=== PATIENT | female | born 1970 | race Caucasian/White ===

== ENCOUNTER → 2019-07-26 15:26 | Outpatient (BNVA) | payer SELFPAY | PROVIDERS: Family Provider Family Medicine; Visit Provider Family Medicine | DX: Z01.89 Encounter for other specified special examinations (principal) ==

== ENCOUNTER 2019-12-25 12:42 | Emergency (ER) | payer SELFPAY ==
[2019-12-25 12:49] VITALS: BP 150/97; PULSE 90; RESP 14; TEMP 36.7; O2SAT 98; BMI 25.6
--- NOTE | 2019-12-25 13:51 | W.ED.GENADLT ---
HPI - General Adult General: Chief complaint: General Medical Stated complaint: back pain Time Seen by Provider: 12/25/19 13:32 History of Present Illness: HPI narrative: Patient is a 49-year-old female comes to the ED with right flank pain. Patient has a past medical history of prior kidney stones, hypertension and hypothyroidism. Patient says pain started about 4 days ago and has since gotten worse. Today the pain is gotten more severe and started on the right flank about mid lower back region and has since progressed down and moved into the right lower quadrant. She rates the pain about 7 out of 10. Patient says her urine has been a little dark lately. Denies any fever, chills, nausea, vomiting, diarrhea, constipation, blood in the stool, dysuria. Associated symptoms: Deny chest pain, dyspnea, headache(s), nausea, rash, palpitations or vomiting Review of Systems Const: Denies: fever(s), chills or fatigue Eyes: Denies: change in vision or eye discomfort ENMT: Denies: throat pain, odynophagia, nasal discharge or nasal congestion Card: Denies: chest pain, palpitations, edema, swelling of feet/ankles, dyspnea on exertion or orthopnea Resp: Denies: dyspnea, productive cough or non-productive cough GI: Reports: abdominal pain (Pain has now moved into the pelvis and right lower quadrant); Denies: nausea, vomiting, diarrhea, constipation or hematochezia : Reports: flank pain; Denies: dysuria or hematuria Musc: Denies: neck pain, back pain or extremity swelling Skin/Breast: Denies: rash or new lesions Neuro: Denies: headache(s), numbness in extremities or weakness in extremities PFS ED PFSH: Medical History Bipolar affective disorder in remission Essential hypertension Hepatitis C, chronic Hx +ab, neg viral load Hypothyroidism Surgical History S/P bunionectomy Social History Smoking and tobacco status: current every day smoker cigarettes Packs smoked per day: 1 Quit status (tobacco): not considering quitting Second hand smoke exposure: Yes Physical Exam Const: COMMON NORMALS: patient oriented x3, healthy appearing and alert GENERAL APPEARANCE: cooperative; not comfortable (Patient was uncomfortable and in some pain.) HENMT: COMMON NORMALS: normocephalic HEAD & SCALP: normocephalic MOUTH: Normal oral and palatal mucosa present THROAT: posterior oropharynx normal and uvula midline Neck/C-Spine: COMMON NORMALS: supple GENERAL: Yes normal visual inspection Resp: COMMON NORMALS: normal respiratory effort, No retractions, No use of accessory muscles and clear to auscultation bilaterally AUSCULTATION: clear to auscultation bilaterally Cardio: COMMON NORMALS: regular rate, regular rhythm, S1 normal heart sound present, S2 normal heart sound present, No gallops present (Cardio), No clicks present (Cardio), No murmurs present (Cardio) and Peripheral pulses 2+ throughout RATE: regular rate RHYTHM: regular rhythm HEART SOUNDS: S1 normal heart sound present and S2 normal heart sound present PERIPHERAL PULSES: Peripheral pulses 2+ throughout GI: COMMON NORMALS: Normal to inspection, nondistended, normoactive bowel sounds present, Soft to palpation and no masses PALPATION: Yes Soft to palpation and Yes Tenderness to palpation present (GI) Details: RLQ (Mild tenderness in the right lower pelvic region.) : BLADDER/KIDNEY EXAM: Yes CVA tenderness Back/Pelvis: GENERAL BACK: Yes CVA tenderness CVA tenderness: right (mild) Extremity: COMMON NORMALS: normal to inspection and no pedal edema Neuro: COMMON NORMALS: patient oriented x3 and moves all extremities SENSORIUM/ORIENTATION: Yes alert Skin: COMMON NORMALS: no rashes or lesions noted GENERAL SKIN EXAM: no rashes or lesions noted and dry skin Course Consultations: Consultation #1: I contacted the general surgeon on-call Dr. Del Toro and discussed patient's case and CT findings. He recommended that if patient wants to go home and her pain is under control, she should go home and instruct her to return to the ED for reevaluation immediately if symptoms worsen. He also suggested having close follow-up with PCP next couple days as well. Vital Signs: Vital signs: Vital Signs Temperature 98.1 F 12/25/19 12:49 Pulse Rate 72 12/25/19 17:21 Respiratory Rate 18 12/25/19 17:21 Blood Pressure 167/100 12/25/19 17:21 Pulse Oximetry 94 12/25/19 17:21 MDM - General Adult MDM Narrative: Medical decision making narrative: Patient is a 49-year-old female comes to the ED with right flank pain that is also progressed to the right lower quadrant. During physical exam patient had right CVA tenderness and also some right lower quadrant tenderness as well. White blood cell count was 6.9, CMP and lipase were normal. Patient's UA just showed some blood but no other signs of infection. CT of abdomen performed mainly to find potential kidney stone, but report showed no obstructing kidney stones seen, but possible very early signs of appendicitis. I discussed this case with the on-call general surgeon Dr. Del Toro and he was okay with patient going home as long as her pain is controlled and she has close follow-up with PCP for reevaluation in the next couple days. He also told me to stress to her that she can come back to the ED for reevaluation if symptoms worsen. Patient was then diagnosed with abdominal pain and told about possible early appendicitis. I told her that she needs to see her primary care doctor in the next 2 to 3 days for reevaluation and that she can return to the ED immediately if symptoms worsen. Patient was given a prescription for Cipro, Flagyl and Zofran. She was also given a written prescription for hydrocodone to help with pain. She was told to return to ED immediately if she has worsening symptoms including fever, vomiting, increasing pain. Patient says she will follow-up with her PCP in the next couple days as well. Patient understood and agreed with plan. Lab Data: Attestation: I reviewed the patient's lab results. Labs: Lab Results 12/25/19 12/25/19 12/25/19 Range/Units 13:53 14:20 14:20 WBC 6.9 (4.0-10.0) 10^3/ uL RBC 4.44 (4.1-5.3) 10^6/u L Hgb 13.8 (11.5-15.3) g/dL Hct 42.1 (37.0-47.0) % MCV 94.8 (81-99) fL MCH 31.1 (28.0-34.0) pg MCHC 32.8 (30.0-36.0) g/dL RDW 13.7 (12.1-15.1) % Plt Count 242 (130-400) 10^3/c mm MPV 9.8 (7.4-10.4) fL Neut % (Auto) 69.4 % Lymph % (Auto) 23.3 % [place] % (Auto) 5.4 % Eos % (Auto) 0.9 % Baso % (Auto) 0.7 % Neut # (Auto) 4.8 (1.8-7.7) 10^3/u L Lymph # (Auto) 1.6 (0.8-4.8) 10^3/u L [place] # (Auto) 0.4 (0.2-0.9) 10^3/u L Eos # (Auto) 0.1 (0.0-0.8) 10^3/u L Baso # (Auto) 0.1 (0.0-0.1) 10^3/u L Nucleated RBC % (a uto) 0 % Nucleated RBCs # 0.0 /100WBC Sodium 138 (136-145) mmol/L Potassium 3.5 (3.5-5.1) mmol/L Chloride 99 (98-107) mmol/L Carbon Dioxide 28 (22-29) mmol/L Anion Gap 14.5 (5-19) BUN 13 (6-20) mg/dL Creatinine 0.8 (0.5-0.9) mg/dL GFR Calculation 75.9 L (90-130) mL/min Glucose 122 H (65-115) mg/dL Calculated Osmolal ity 283 L (285-295) mOsm/k g Calcium 9.5 (8.5-10.5) mg/dL Total Bilirubin 0.6 (0.15-1.2) mg/dL AST 16 (0-32) U/L ALT 12 (0-33) U/L Alkaline Phosphata se 36 (35-105) IU/L Total Protein 8.0 (6.6-8.7) g/dL Albumin 4.4 (3.5-5.2) g/dL Globulin 3.6 (1.3-4.6) g/dL Lipase 19 (13-60) U/L HCG, Qual (Negative) Urine Color Yellow (Yellow) Urine Appearance Clear (CLEAR) Urine pH 5 (5-7) Ur Specific Gravit y 1.025 (1.005-1.030) Urine Protein Neg (Negative) Urine Glucose (UA) Norm (Normal) Urine Ketones Negative (Negative) Urine Blood 2+ H (Negative) Urine Nitrate Negative (Negative) Urine Bilirubin Neg (NEGATIVE) Urine Urobilinogen 1 H (Negative) mg/dL Ur Leukocyte [place] ase Negative (Negative) Urine RBC 5-10 H (0-2) /hpf Urine WBC 0-4 H (0-5) /hpf Ur Squamous Epith Cells 0-4 H (0-5) Urine Bacteria 1+ H (NONE) Urine Mucus 2+ 06/30/20 Range/Units 14:20 WBC (4.0-10.0) 10^3/ uL RBC (4.1-5.3) 10^6/u L Hgb (11.5-15.3) g/dL Hct (37.0-47.0) % MCV (81-99) fL MCH (28.0-34.0) pg MCHC (30.0-36.0) g/dL RDW (12.1-15.1) % Plt Count (130-400) 10^3/c mm MPV (7.4-10.4) fL Neut % (Auto) % Lymph % (Auto) % [place] % (Auto) % Eos % (Auto) % Baso % (Auto) % Neut # (Auto) (1.8-7.7) 10^3/u L Lymph # (Auto) (0.8-4.8) 10^3/u L [place] # (Auto) (0.2-0.9) 10^3/u L Eos # (Auto) (0.0-0.8) 10^3/u L Baso # (Auto) (0.0-0.1) 10^3/u L Nucleated RBC % (a uto) % Nucleated RBCs # /100WBC Sodium (136-145) mmol/L Potassium (3.5-5.1) mmol/L Chloride (98-107) mmol/L Carbon Dioxide (22-29) mmol/L Anion Gap (5-19) BUN (6-20) mg/dL Creatinine (0.5-0.9) mg/dL GFR Calculation (90-130) mL/min Glucose (65-115) mg/dL Calculated Osmolal ity (285-295) mOsm/k g Calcium (8.5-10.5) mg/dL Total Bilirubin (0.15-1.2) mg/dL AST (0-32) U/L ALT (0-33) U/L Alkaline Phosphata se (35-105) IU/L Total Protein (6.6-8.7) g/dL Albumin (3.5-5.2) g/dL Globulin (1.3-4.6) g/dL Lipase (13-60) U/L HCG, Qual Negative (Negative) Urine Color (Yellow) Urine Appearance (CLEAR) Urine pH (5-7) Ur Specific Gravit y (1.005-1.030) Urine Protein (Negative) Urine Glucose (UA) (Normal) Urine Ketones (Negative) Urine Blood (Negative) Urine Nitrate (Negative) Urine Bilirubin (NEGATIVE) Urine Urobilinogen (Negative) mg/dL Ur Leukocyte [place] ase (Negative) Urine RBC (0-2) /hpf Urine WBC (0-5) /hpf Ur Squamous Epith Cells (0-5) Urine Bacteria (NONE) Urine Mucus Imaging Data^: CT Abd/Pel: Attestation: I personally reviewed and interpreted this imaging study as follows: Radiologist's impression: [place] [id number] CT Scan Report Signed with Gena Patient: Mily Stockton #: [id number] : 1970Acct#:[id number] Age/Sex: 49 / FADM Date: 12/25/19 Loc: ERRoom/Bed: Attending Dr: Ordering Provider/Ordering MD: Mathieu Keyes Date of Service: 12/25/19 Procedure(s): CT kidney stone 62620 Accession Number(s): [id number] Report Number: [id number]/CT kidney stone 02900 THIS REPORT CONTAINS FINDINGS THAT MAY BE CRITICAL TO PATIENT CARE. The findings were verbally communicated via telephone conference with Mathieu Keyes at 4:17 PM CDT on 12/25/2019. The findings were acknowledged and understood. Radiation Dose CTDIVOL = (mGy): DLP = 1264.06 (mGy-cm) Addendum Dictated By: Odalis Madrigal Addendum Signed By: Miriam Madrigal Date/Time:12/25/19 1619 Addendum Cosigned By: PROCEDURE INFORMATION: Exam: CT Abdomen And Pelvis Without Contrast Exam date and time: 12/25/2019 2:29 PM Age: 49 years old Clinical indication: Abdominal pain; Patient HX: Right flank pain x 4 days TECHNIQUE: Imaging protocol: Computed tomography of the abdomen and pelvis without contrast. Radiation optimization: All CT scans at this facility use at least one of these dose optimization techniques: automated exposure control; mA and/or kV adjustment per patient size (includes targeted exams where dose is matched to clinical indication); or iterative reconstruction. COMPARISON: No relevant prior studies available. RADIATION DOSE METRICS: Total DLP (mGy-cm): 1264.06 FINDINGS: Lungs: There is subpleural atelectasis of the dependent portions of the lungs. Mediastinal space: A small hiatal hernia is present. There is mild wall thickening of the distal esophagus that may reflect lack of distention or mild esophagitis. Liver: Unremarkable.No mass. Gallbladder and bile ducts: The gallbladder is partially collapsed. No wall thickening or duct dilatation is identified. Pancreas: Normal. No ductal dilation. Spleen: Normal. No splenomegaly. Adrenals: Normal. No mass. Kidneys and ureters: There is no evidence of hydronephrosis. There is no evidence of renal calcifications. No calculi are identified in the ureters or bladder. Stomach and bowel: There is mild diffuse proximal small bowel wall thickening with fluid in the lumen, compatible with mild enteritis. There is no evidence of intestinal perforation or obstruction. There is abundant colonic stool in the right colon. No wall thickening. No colitis or diverticulitis. Appendix: The transverse measurement of the appendix is 13 mm image 114. The wall is slightly thickened and mildly hyperdense. There is no periappendiceal inflammatory change but the wall of the appendix appears slightly thicker than the adjacent loops of small bowel concerning for very early/mild appendicitis. There does appear to be a small amount of fat density in the wall of the appendix but the transverse measurement is prominent. Intraperitoneal space: Unremarkable. No free air. No significant fluid collection. Vasculature: Unremarkable.No abdominal aortic aneurysm. Lymph nodes: Unremarkable.No enlarged lymph nodes. Bladder: There is nonspecific bladder wall thickening. This may be related to incomplete distention. Reproductive: Unremarkable as visualized. Bones/joints: Unremarkable. No acute fracture. Soft tissues: There is a fat-containing umbilical hernia. CT/CT kidney stone 65607 IMPRESSION: 1. There is mild diffuse proximal small bowel wall thickening with fluid in the lumen, compatible with mild enteritis. 2. Appendix measurement is above normal limits in the wall appears slightly thickened concerning for early appendicitis. There is no significant periappendiceal inflammatory changes. The periappendiceal fat is clean.. 3. No obstructing calculi or hydronephrosis. The gallbladder is partially collapsed but otherwise unremarkable. Radiation Dose CTDIVOL = (mGy): DLP = 1264.06 (mGy-cm) Dictated By:Odalis Madrigal Signed By:Miriam Madrigal Date/Time:12/25/19 160 DD/ 160 Discharge Plan Discharge Patient Disposition: Home, Self-Care Clinical Impression: Abdominal pain Qualifiers: Abdominal location: right lower quadrant Qualified Code(s): R10.31 - Right lower quadrant pain Condition: Stable Prescriptions: New ciprofloxacin HCl 500 mg tablet 500 mg PO BID 10 Days Qty: 20 RF: 0 Flagyl 500 mg tablet 500 mg PO BID 10 Days Qty: 20 RF: 0 Zofran 4 mg tablet 4 mg PO DAILY Qty: 14 RF: 0 No Action lisinopril-hydrochlorothiazide 20-12.5 mg tablet 1 tab PO QDAY 30 Days Qty: 30 RF: 2 metoprolol succinate 25 mg tablet extended release 24 hr 25 mg PO QDAY 30 Days Qty: 30 RF: 2 terbinafine HCl 250 mg tablet 250 mg PO DAILY 30 Days Qty: 30 RF: 2 sulfamethoxazole-trimethoprim [Bactrim DS] 800-160 mg tablet 1 tab PO BID 3 Days Qty: 6 RF: 0 levothyroxine 150 mcg capsule 150 mcg PO DAILY 30 Days Qty: 30 RF: 5 Discharge Orders: Discharge Order (Routine); Ordered 12/25/19 Ordered By: Mathieu Keyes Referrals: Ela Cancino MD [Primary Care Provider] - Discharge Diet: Regular Discharge Activity: Increase activity as tolerated Patient Instructions: Abdominal Pain (ED) Activity Restrictions/Additional Instructions: Go follow-up with your PCP in 2 to 3 days for reevaluation. Take full course of antibiotics as prescribed. Take prescribed [place] as needed for pain. Take Zofran as needed for nausea. Continue taking all home meds. Follow discharge plans as discussed. You can return to the ED if symptoms worsen. Discharge Date/Time: 12/25/19 17:21 Coding Level of Care Code ED [employer] Pricing Coordinator for Jorge Ribera Exam Comprehensive
--- NOTE | 2019-12-25 14:13 | CTR_ITS ---
PROCEDURE INFORMATION: Exam: CT Abdomen And Pelvis Without Contrast Exam date and time: 12/25/2019 2:29 PM Age: 49 years old Clinical indication: Abdominal pain; Patient HX: Right flank pain x 4 days TECHNIQUE: Imaging protocol: Computed tomography of the abdomen and pelvis without contrast. Radiation optimization: All CT scans at this facility use at least one of these dose optimization techniques: automated exposure control; mA and/or kV adjustment per patient size (includes targeted exams where dose is matched to clinical indication); or iterative reconstruction. COMPARISON: No relevant prior studies available. RADIATION DOSE METRICS: Total DLP (mGy-cm): 1264.06 FINDINGS: Lungs: There is subpleural atelectasis of the dependent portions of the lungs. Mediastinal space: A small hiatal hernia is present. There is mild wall thickening of the distal esophagus that may reflect lack of distention or mild esophagitis. Liver: Unremarkable.No mass. Gallbladder and bile ducts: The gallbladder is partially collapsed. No wall thickening or duct dilatation is identified. Pancreas: Normal. No ductal dilation. Spleen: Normal. No splenomegaly. Adrenals: Normal. No mass. Kidneys and ureters: There is no evidence of hydronephrosis. There is no evidence of renal calcifications. No calculi are identified in the ureters or bladder. Stomach and bowel: There is mild diffuse proximal small bowel wall thickening with fluid in the lumen, compatible with mild enteritis. There is no evidence of intestinal perforation or obstruction. There is abundant colonic stool in the right colon. No wall thickening. No colitis or diverticulitis. Appendix: The transverse measurement of the appendix is 13 mm image 114. The wall is slightly thickened and mildly hyperdense. There is no periappendiceal inflammatory change but the wall of the appendix appears slightly thicker than the adjacent loops of small bowel concerning for very early/mild appendicitis. There does appear to be a small amount of fat density in the wall of the appendix but the transverse measurement is prominent. Intraperitoneal space: Unremarkable. No free air. No significant fluid collection. Vasculature: Unremarkable.No abdominal aortic aneurysm. Lymph nodes: Unremarkable.No enlarged lymph nodes. Bladder: There is nonspecific bladder wall thickening. This may be related to incomplete distention. Reproductive: Unremarkable as visualized. Bones/joints: Unremarkable. No acute fracture. Soft tissues: There is a fat-containing umbilical hernia. CT/CT kidney stone 22861 IMPRESSION: 1. There is mild diffuse proximal small bowel wall thickening with fluid in the lumen, compatible with mild enteritis. 2. Appendix measurement is above normal limits in the wall appears slightly thickened concerning for early appendicitis. There is no significant periappendiceal inflammatory changes. The periappendiceal fat is clean.. 3. No obstructing calculi or hydronephrosis. The gallbladder is partially collapsed but otherwise unremarkable. Radiation Dose CTDIVOL = (mGy): DLP = 1264.06 (mGy-cm)
[2019-12-25] MEDS: sodium chloride 0.9% 1,000 ML 999 ML IV (14:25)
[2019-12-25 14:30] VITALS: RESP 18; O2SAT 97
[2019-12-25] MEDS: ondansetron 2 mg/ML SDV 2 mL 4 MG IVP (14:30)
[2019-12-25] MEDS: morphine 4 mg/mL SDV 1 mL IVP (14:30)
[2019-12-25 14:31] LABS: Basophils # 0.1 10^3/uL (0.0-0.1); Basophils % 0.7 %; Eosinophils # 0.1 10^3/uL (0.0-0.8); Eosinophils % 0.9 %; Hematocrit 42.1 % (37.0-47.0); Hemoglobin 13.8 g/dL (11.5-15.3); Lymphocytes # 1.6 10^3/uL (0.8-4.8); Lymphocytes % 23.3 %; Mean Corpuscular HGB Conc 32.8 g/dL (30.0-36.0); Mean Corpuscular Hemoglobin 31.1 pg (28.0-34.0); Mean Corpuscular Volume 94.8 fL (81-99); Mean Platelet Volume 9.8 fL (7.4-10.4); Monocytes # 0.4 10^3/uL (0.2-0.9); Monocytes % 5.4 %; Neutrophils # 4.8 10^3/uL (1.8-7.7); Neutrophils % 69.4 %; Nucleated Red Blood Cells % 0 %; Platelet Count 242 10^3/cmm (130-400); Red Blood Count 4.44 10^6/uL (4.1-5.3); Red Cell Distribution Width 13.7 % (12.1-15.1); White Blood Count 6.9 10^3/uL (4.0-10.0)
[2019-12-25 14:36] LABS: Bilirubin Urine Neg (NEGATIVE); Blood Urine 2+ (Negative); Glucose Urine UA Norm (Normal); Ketones Urine Negative (Negative); Leukocyte Esterase Urine Negative (Negative); Nitrate Urine Negative (Negative); Protein Urine Neg (Negative); Specific Gravity, Urine 1.025 (1.005-1.030); Urine Appearance Clear (CLEAR); Urine Color Yellow (Yellow); Urobilinogen Urine 1 mg/dL (Negative); pH Urine 5 (5-7)
[2019-12-25 14:37] LABS: Add Urine Culture? No; Bacteria Urine 1+; Mucus Urine 2+; Squamous Epithelial Cell Urine 0-4 (0-5); WBC Urine 0-4 /hpf (0-5)
[2019-12-25 14:46] LABS: Alanine Aminotransferase 12 U/L (0-33); Albumin Level 4.4 g/dL (3.5-5.2); Alkaline Phosphatase 36 IU/L (35-105); Anion Gap 14.5 (5-19); Aspartate Amino Transferase 16 U/L (0-32); Blood Urea Nitrogen 13 mg/dL (6-20); Calcium 9.5 mg/dL (8.5-10.5); Carbon Dioxide 28 mmol/L (22-29); Chloride 99 mmol/L (98-107); Globulin 3.6 g/dL (1.3-4.6); Glomerular Filtration Rate 75.9 mL/min (90-130); Glucose 122 mg/dL (65-115); Lipase 19 U/L (13-60); Osmolality Calculated 283 mOsm/kg (285-295); Potassium 3.5 mmol/L (3.5-5.1); Sodium 138 mmol/L (136-145); Total Bilirubin 0.6 mg/dL (0.15-1.2)
[2019-12-25 14:54] LABS: HCG, Serum Qual Negative (Negative)
[2019-12-25 17:21] VITALS: BP 167/100; PULSE 72; RESP 18; O2SAT 94
== END 2019-12-25 17:21 | disposition home or self-care (01) ==
PROVIDERS: Emergency Provider Physician Assistant; PCP Family Medicine
DX: R10.31 Right lower quadrant pain (principal); I10 Essential (primary) hypertension; Z86.19 Personal history of other infectious and parasitic diseases; F17.210 Nicotine dependence, cigarettes, uncomplicated
CPT/HCPCS: 12345; 74176; 80053; 81001; 83690; 84703; 85025; 96361; 96374; 96375; 99283; J2270; J2405; J7030

== ENCOUNTER 2019-12-28 11:31 | Emergency (ER) | payer SELFPAY ==
[2019-12-28 11:39] VITALS: BP 127/82; PULSE 65; RESP 14; TEMP 37; O2SAT 97; BMI 25.6
--- NOTE | 2019-12-28 11:51 | CT_ITS ---
WS: [id number] CT ABDOMEN AND PELVIS WITH CONTRAST HISTORY: Abdominal pain TECHNIQUE: Imaging performed of the abdomen and pelvis with IV contrast. Single phase imaging of the abdomen. Coronal and sagittal reformats are submitted. All CT scans at [facility] use at least one of these dose optimization techniques: automated exposure control; mA and/or kV adjustment per patient size (includes targeted exams where dose is matched to clinical indication); or iterativ e reconstruction. IV CONTRAST: Omnipaque 300; 95 mL IV. Oral contrast: Yes. DLP: 993.76 mGy.cm COMPARISON: 12/25/2019 Lower thorax: Lung bases are clear. Heart is normal size. Small hiatal hernia. Liver/biliary system: Normal size liver with hepatic steatosis along the falciform ligament. Portal v ein is patent. No bile duct dilatation. Gallbladder: Normal. No gallstones or wall thickening. No pericholecystic fluid. Pancreas: Normal. Spleen: Normal. Adrenal glands: Normal. Right kidney: Normal. Left kidney: Normal. Aorta: Normal. Lymphadenopathy: None. Free fluid: None. GI tract: The appendix is identified and contains multiple foci of air. Similar appearance to the cierra or study with no evidence for acute appendicitis. There is diffuse constipation and retained fecal ma terial throughout the colon there is moderate thickening in the descending and sigmoid colonic wall. There is mucosal thickening and there is a small amount of adjacent inflammation surrounding the sigm oid. Caliber of the colon becomes decreased. Mild wall thickening continues to the level of the rectu m. Minimal thickening of the duodenal C-loop. Abdominal wall: Small umbilical hernia. Pelvis: Well-distended urinary bladder. There is a tubular cystic structure in the LEFT adnexa which is probably a parapelvic cyst or dilated fallopian tube. This was also present on the pelvic MRI from 01/03/2012. Small RIGHT ovarian follicle. Bones: Mild curvature lumbar spine. Notified Marzena Zhang at 12/28/2019 2:[address]/CT abdomen pelvis w con* [id number] IMPRESSION: 1. Negative appendix. No evidence for appendicitis. 2. There is mild mucosal thickening and pericolonic inflammation in the descen ding and sigmoid colon to the level of the rectum. Caliber of the colon becomes decreased and there is more proximal constipation. Due to long segment involve ment of the colon favor colitis. 3. Small hiatal hernia. 4. No renal stone or obstruction. 5. Elongated, tubular cystic mass LEFT adnexa. Present since 2011. Probably a parapelvic cyst or hydrosalpinx.
[2019-12-28 12:24] LABS: HCG, Serum Qual Negative (Negative)
[2019-12-28 12:30] LABS: Alanine Aminotransferase 10 U/L (0-33); Albumin Level 4.3 g/dL (3.5-5.2); Alkaline Phosphatase 31 IU/L (35-105); Aspartate Amino Transferase 14 U/L (0-32); Blood Urea Nitrogen 12 mg/dL (6-20); Calcium 9.6 mg/dL (8.5-10.5); Carbon Dioxide 28 mmol/L (22-29); Chloride 99 mmol/L (98-107); Globulin 3.4 g/dL (1.3-4.6); Glomerular Filtration Rate 88.6 mL/min (90-130); Glucose 80 mg/dL (65-115); Lipase 9 U/L (13-60); Osmolality Calculated 279 mOsm/kg (285-295); Sodium 137 mmol/L (136-145); Total Bilirubin 0.4 mg/dL (0.15-1.2); Total Protein 7.7 g/dL (6.6-8.7)
[2019-12-28] MEDS: morphine 4 mg/mL SDV 1 mL IVP (12:38)
[2019-12-28] MEDS: metoclopramide 5 mg/mL SDV 2 mL 10 MG IVP (12:38)
[2019-12-28] MEDS: ondansetron 2 mg/ML SDV 2 mL 4 MG IVP (12:38)
[2019-12-28] MEDS: barium sulfate 450 mL Oral Susp PO (12:40)
[2019-12-28] MEDS: sodium chloride 0.9% 1,000 ML 100 ML IV (12:40)
[2019-12-28 12:41] VITALS: BP 122/73; PULSE 64; RESP 14; O2SAT 96
[2019-12-28 12:54] LABS: Basophils % 0.5 %; Eosinophils # 0.1 10^3/uL (0.0-0.8); Lymphocytes # 1.6 10^3/uL (0.8-4.8); Lymphocytes % 20.5 %; Mean Corpuscular HGB Conc 32.6 g/dL (30.0-36.0); Mean Corpuscular Volume 95.1 fL (81-99); Mean Platelet Volume 10.2 fL (7.4-10.4); Monocytes # 0.6 10^3/uL (0.2-0.9); Monocytes % 7.1 %; Neutrophils # 5.5 10^3/uL (1.8-7.7); Neutrophils % 70.5 %; Nucleated Red Blood Cells % 0 %; Platelet Count 269 10^3/cmm (130-400); Red Blood Count 4.52 10^6/uL (4.1-5.3); Red Cell Distribution Width 13.9 % (12.1-15.1); White Blood Count 7.8 10^3/uL (4.0-10.0)
[2019-12-28 13:01] LABS: Bilirubin Urine Neg (NEGATIVE); Blood Urine Neg (Negative); Glucose Urine UA Norm (Normal); Ketones Urine Negative (Negative); Leukocyte Esterase Urine Negative (Negative); Nitrate Urine Negative (Negative); Protein Urine Neg (Negative); Urine Appearance Clear (CLEAR); Urine Color Yellow (Yellow); Urobilinogen Urine Neg (Negative); pH Urine 5 (5-7)
[2019-12-28 13:12] LABS: Add Urine Culture? No; Bacteria Urine TRACE
--- NOTE | 2019-12-28 13:16 | W.ED.ABDPA2 ---
HPI - Abdominal Pain General: Chief Complaint: Abdominal Pain Stated Complaint: POSS APPENDICITIS Time Seen by Provider: 12/28/19 11:39 Source: patient Mode of arrival: ambulatory Limitations: no limitations History of Present Illness: HPI narrative: Mily is a nice 49-year-old female who comes in complaining of 1 weeks worth of abdominal pain patient was previously seen here for this and had a CT scan that showed equivocal findings. Please see that CT report as well as that ER chart for specifics. Patient is on Cipro and Flagyl and has been so for the past 2 days. She has no fever, no nausea or vomiting, but has had nonbloody diarrhea. She denies any vaginal discharge or bleeding, dysuria or other gynecologic or urologic complaint. Patient is unaware of any exacerbating or alleviating factors the pain is just continued and because of this after seeing her primary care she was referred back here for recheck. Associated Symptoms: Reports nausea and vomiting; Denies chills, coffee ground emesis, constipation, GI cramping, diarrhea, dysuria, fever(s), heartburn, hematochezia, hematuria, hematemesis, melena and syncope Review of Systems Const: Denies: fever(s), chills, body aches, fatigue, malaise or diaphoresis Eyes: Denies: change in vision, blurry vision, blind spots, photophobia, eye discharge or eye redness ENMT: Denies: throat pain, odynophagia, hoarseness, swelling of lips/tongue, oral sores, ear or mastoid pain, ear discharge, change in hearing or nasal discharge Card: Denies: chest pain, palpitations, irregular heart rhythm, edema, lightheadedness, syncope, pre-syncope, dyspnea on exertion or orthopnea Resp: Denies: dyspnea, productive cough, non-productive cough, wheezing, hemoptysis or chest congestion GI: Reports: abdominal pain, nausea and vomiting; Denies: hematemesis, coffee ground emesis, heartburn, diarrhea, constipation, GI cramping, hematochezia or melena : Denies: flank pain, dysuria, urinary frequency, urinary urgency or hematuria Musc: Denies: neck pain, back pain, extremity pain, extremity swelling, joint pain, joint swelling, joint redness, joint warmth or joint stiffness Skin/Breast: Denies: rash, pruritus, erythema, skin tenderness or jaundice Neuro: Denies: headache(s), numbness in extremities, weakness in extremities, sensory changes, lack of coordination, difficulty walking, dizziness, vertigo, confusion, Slurred speech present or seizure-like activity [place]/Lymph: Denies: easy bruising, easy bleeding, petechiae, purpura or enlarged lymph nodes All/Imm: Denies: urticaria, throat swelling, tongue swelling, facial swelling or acute wheezing PFSH ED PFSH: Medical History Bipolar affective disorder in remission Essential hypertension Hepatitis C, chronic Hx +ab, neg viral load Hypothyroidism Surgical History S/P bunionectomy Social History Smoking and tobacco status: current every day smoker cigarettes Packs smoked per day: 1 Quit status (tobacco): not considering quitting Second hand smoke exposure: Yes Physical Exam Const: COMMON NORMALS: no acute distress, patient oriented x3, no limitations, healthy appearing and well nourished GENERAL APPEARANCE: cooperative, well kempt and well developed HENMT: COMMON NORMALS: normocephalic, atraumatic, external ears normal, EAC's normal and Normal external nose present HEAD & SCALP: normal to inspection, normocephalic and atraumatic FACE & SINUS: normal facial exam and face symmetric NOSE: Normal external nose present and Normal nares present EXTERNAL EAR: Yes external ears normal EXTERNAL AUDITORY CANAL: EAC's normal MOUTH: Normal oral and palatal mucosa present, lip normal and tongue normal Eye: COMMON NORMALS: Equal, round and reactive pupils present and conjunctivae normal GENERAL EYE: appearance normal, both eyes and all related structures ALIGNMENT: Yes alignment normal PERIORBITAL: periorbital findings normal EYELID: eyelids normal CONJUNCTIVA: Yes conjunctivae normal SCLERA: sclerae normal PUPIL: Yes Equal, round and reactive pupils present Neck/C-Spine: COMMON NORMALS: full ROM, no lymphadenopathy, supple, no meningeal signs and no JVD GENERAL: Yes normal visual inspection and Yes trachea midline Chest: COMMONS NORMALS: normal inspection of the chest and normal palpation of entire chest wall Resp: COMMON NORMALS: normal respiratory effort, No retractions and No use of accessory muscles EFFORT & INSPECTION: Yes able to speak in complete sentences and Yes symmetric chest movement AUSCULTATION: no crackles, no rales, no rhonchi and no wheezes Cardio: COMMON NORMALS: no JVD, regular rate, regular rhythm, S1 normal heart sound present and S2 normal heart sound present RATE: regular rate RHYTHM: regular rhythm HEART SOUNDS: S1 normal heart sound present, S2 normal heart sound present, no click, no gallops, no murmurs, no rubs and abnormal split S2 GI: COMMON NORMALS: Soft to palpation and No hepatosplenomegaly present PALPATION: Yes Soft to palpation, No Tenderness to palpation present (GI), No Guarding due to palpation present (GI), No Rigid due to palpation, Yes No hepatosplenomegaly present, No Hernia present, No Palpable mass present and No Pulsatile mass present : COMMON NORMALS: Yes no CVA tenderness BLADDER/KIDNEY EXAM: Yes no CVA tenderness EXTERNAL FEMALE EXAM: No Hernia present Back/Pelvis: COMMON NORMALS: no CVA tenderness, thoracic and lumbar spine normal to inspection, no thoracic nor lumbar tenderness and thoraco-lumbar ROM normal Extremity: COMMON NORMALS: normal to inspection, full ROM, capillary refill normal, no joint enlargement, no clubbing, cyanosis or edema and no calf tenderness Neuro: COMMON NORMALS: patient oriented x3, CN's II-XII intact bilaterally, moves all extremities, no focal motor deficits and no sensory deficits noted MENINGEAL SIGNS: Yes no meningeal signs SPEECH: speech normal Psych: COMMON NORMALS: mental status grossly normal, Normal thought process present, cooperative, normal affect, speech normal and activity/motor behavior normal APPEARANCE: Yes well kempt SPEECH: Yes normal speech THOUGHT PROCESS: Normal thought process present Skin: COMMON NORMALS: no rashes or lesions noted, turgor normal, no jaundice, no petechiae and no mottling GENERAL SKIN EXAM: no rashes or lesions noted and turgor normal Course Vital Signs: Vital signs: Vital Signs Temperature 98.6 F 12/28/19 11:39 Pulse Rate 54 L 12/28/19 14:46 Respiratory Rate 14 12/28/19 14:46 Blood Pressure 110/83 12/28/19 14:46 Pulse Oximetry 98 12/28/19 14:46 MDM - Abdominal Pain MDM Narrative: Medical decision making narrative: Mily is a nice 49-year-old female who comes in complaining of greater than 1 weeks worth of abdominal pain. CT scan today shows a normal appendix and no evidence of renal disease. There is evidence of descending and rectal colitis. There is no sign of perforation, diverticulitis or any type of surgical problem in the abdomen. Patient has no fever or vomiting. She has had diarrhea at home. Patient is just started her Cipro and Flagyl and has 8 days left of this to take. She is requesting something other for pain other than the hydrocodone as previously given her. I will add dicyclomine for her pain. Patient is happy to hear she has no appendicitis and she is ready to go home. She understands she needs to return if her symptoms worsen or change. At this time though she is feeling better and would like to be discharged. Lab Data: Attestation: I reviewed the patient's lab results. Labs: Lab Results 12/28/19 12/28/19 12/28/19 Range/Units 11:57 11:57 11:57 WBC 7.8 (4.0-10.0) 10^3/ uL RBC 4.52 (4.1-5.3) 10^6/u L Hgb 14.0 (11.5-15.3) g/dL Hct 43.0 (37.0-47.0) % MCV 95.1 D (81-99) fL MCH 31.0 (28.0-34.0) pg MCHC 32.6 D (30.0-36.0) g/dL RDW 13.9 (12.1-15.1) % Plt Count 269 (130-400) 10^3/c mm MPV 10.2 (7.4-10.4) fL Neut % (Auto) 70.5 % Lymph % (Auto) 20.5 % [place] % (Auto) 7.1 % Eos % (Auto) 1.0 % Baso % (Auto) 0.5 % Neut # (Auto) 5.5 (1.8-7.7) 10^3/u L Lymph # (Auto) 1.6 (0.8-4.8) 10^3/u L [place] # (Auto) 0.6 (0.2-0.9) 10^3/u L Eos # (Auto) 0.1 (0.0-0.8) 10^3/u L Baso # (Auto) 0.0 (0.0-0.1) 10^3/u L Nucleated RBC % (a uto) 0 % Nucleated RBCs # 0.0 /100WBC Sodium 137 (136-145) mmol/L Potassium 4.0 (3.5-5.1) mmol/L Chloride 99 (98-107) mmol/L Carbon Dioxide 28 (22-29) mmol/L Anion Gap 14.0 (5-19) BUN 12 (6-20) mg/dL Creatinine 0.7 (0.5-0.9) mg/dL GFR Calculation 88.6 L (90-130) mL/min Glucose 80 (65-115) mg/dL Calculated Osmolal ity 279 L (285-295) mOsm/k g Calcium 9.6 (8.5-10.5) mg/dL Total Bilirubin 0.4 (0.15-1.2) mg/dL AST 14 (0-32) U/L ALT 10 (0-33) U/L Alkaline Phosphata se 31 L (35-105) IU/L Total Protein 7.7 (6.6-8.7) g/dL Albumin 4.3 (3.5-5.2) g/dL Globulin 3.4 (1.3-4.6) g/dL Lipase 9 L (13-60) U/L HCG, Qual Negative (Negative) Urine Color (Yellow) Urine Appearance (CLEAR) Urine pH (5-7) Ur Specific Gravit y (1.005-1.030) Urine Protein (Negative) Urine Glucose (UA) (Normal) Urine Ketones (Negative) Urine Blood (Negative) Urine Nitrate (Negative) Urine Bilirubin (NEGATIVE) Urine Urobilinogen (Negative) mg/dL Ur Leukocyte Mary Carmen ase (Negative) Urine RBC (0-2) /hpf Urine WBC (0-5) /hpf Ur Squamous Epith Cells (0-5) Urine Bacteria (NONE) 12/28/19 Range/Units 12:45 WBC (4.0-10.0) 10^3/ uL RBC (4.1-5.3) 10^6/u L Hgb (11.5-15.3) g/dL Hct (37.0-47.0) % MCV (81-99) fL MCH (28.0-34.0) pg MCHC (30.0-36.0) g/dL RDW (12.1-15.1) % Plt Count (130-400) 10^3/c mm MPV (7.4-10.4) fL Neut % (Auto) % Lymph % (Auto) % [place] % (Auto) % Eos % (Auto) % Baso % (Auto) % Neut # (Auto) (1.8-7.7) 10^3/u L Lymph # (Auto) (0.8-4.8) 10^3/u L [place] # (Auto) (0.2-0.9) 10^3/u L Eos # (Auto) (0.0-0.8) 10^3/u L Baso # (Auto) (0.0-0.1) 10^3/u L Nucleated RBC % (a uto) % Nucleated RBCs # /100WBC Sodium (136-145) mmol/L Potassium (3.5-5.1) mmol/L Chloride (98-107) mmol/L Carbon Dioxide (22-29) mmol/L Anion Gap (5-19) BUN (6-20) mg/dL Creatinine (0.5-0.9) mg/dL GFR Calculation (90-130) mL/min Glucose (65-115) mg/dL Calculated Osmolal ity (285-295) mOsm/k g Calcium (8.5-10.5) mg/dL Total Bilirubin (0.15-1.2) mg/dL AST (0-32) U/L ALT (0-33) U/L Alkaline Phosphata se (35-105) IU/L Total Protein (6.6-8.7) g/dL Albumin (3.5-5.2) g/dL Globulin (1.3-4.6) g/dL Lipase (13-60) U/L HCG, Qual (Negative) Urine Color Yellow (Yellow) Urine Appearance Clear (CLEAR) Urine pH 5 (5-7) Ur Specific Gravit y 1.010 (1.005-1.030) Urine Protein Neg (Negative) Urine Glucose (UA) Norm (Normal) Urine Ketones Negative (Negative) Urine Blood Neg (Negative) Urine Nitrate Negative (Negative) Urine Bilirubin Neg (NEGATIVE) Urine Urobilinogen Neg (Negative) mg/dL Ur Leukocyte Mary Carmen ase Negative (Negative) Urine RBC None (0-2) /hpf Urine WBC None (0-5) /hpf Ur Squamous Epith Cells 5-10 H (0-5) Urine Bacteria Trace (NONE) Discharge Plan Discharge Patient Disposition: Home, Self-Care Clinical Impression: Colitis Condition: Stable Prescriptions: New dicyclomine 20 mg tablet 20 mg PO QID PRN (Reason: Abdominal Pain) Qty: 20 RF: 0 No Action levothyroxine 150 mcg capsule 150 mcg PO DAILY 30 Days Qty: 30 RF: 5 ciprofloxacin HCl 500 mg tablet 500 mg PO BID 10 Days Qty: 20 RF: 0 metronidazole [Flagyl] 500 mg tablet 500 mg PO BID 10 Days Qty: 20 RF: 0 ondansetron HCl [Zofran] 4 mg tablet 4 mg PO DAILY Qty: 14 RF: 0 [place] 5-325 mg Tablet 1 tab PO Q4H PRN (Reason: Pain) RF: 0 ibuprofen 200 mg Tablet 400 mg PO PRN RF: 0 lisinopril-hydrochlorothiazide 20-12.5 mg tablet 1 tab PO DAILY RF: 0 metoprolol succinate 25 mg tablet extended release 24 hr 25 mg PO DAILY RF: 0 Discharge Orders: Discharge Order (Routine); Ordered 12/28/19 Ordered By: Marzena Zhang Referrals: Ela Cancino MD [Primary Care Provider] - 1-3 days Discharge Diet: Advance as tolerated and Clear Liquid Discharge Activity: Increase activity as tolerated Patient Instructions: Acute Nausea and Vomiting (ED), Acute Diarrhea (ED), Abdominal Pain (ED) Activity Restrictions/Additional Instructions: Please return to the ER immediately for any of the signs or symptoms listed on your discharge instruction sheets, worsening/changing of your symptoms, you are not getting better as quickly as expected, or for ANY other cause or concerns. Continue your antibiotics as previously prescribed. Return to the ER for increased pain, fever, vomiting, or for any other cause for concern. Follow a clear liquid diet and advance this as tolerated once your pain has resolved. Discharge Date/Time: 12/28/19 14:46 Coding Level of Care Code ED Book Or Script Editor for Talatg Fwd Exam Comprehensive
[2019-12-28 13:36] VITALS: BP 94/58; PULSE 44; RESP 12; O2SAT 92
[2019-12-28] MEDS: iohexol 300 mg/mL 100 mL Btl IV (13:48)
[2019-12-28 14:46] VITALS: BP 110/83; PULSE 54; RESP 14; O2SAT 98
== END 2019-12-28 14:46 | disposition home or self-care (01) ==
PROVIDERS: Emergency Provider Emergency Medicine; PCP Family Medicine
DX: K52.9 Noninfective gastroenteritis and colitis, unspecified (principal); I10 Essential (primary) hypertension; Z86.19 Personal history of other infectious and parasitic diseases; F17.210 Nicotine dependence, cigarettes, uncomplicated
CPT/HCPCS: 12345; 74177; 80053; 81000; 81001; 83690; 84703; 85025; 96361; 96374; 96375; 96376; 99282; 99283; J2270; J2405; J2765; J7030; Q9967

== ENCOUNTER → 2020-02-25 11:37 | Outpatient (BNVA) | payer SELFPAY | PROVIDERS: PCP Family Medicine; Visit Provider Nurse Practitioner Family | DX: R53.83 Other fatigue (principal); M70.61 Trochanteric bursitis, right hip; M70.62 Trochanteric bursitis, left hip; I10 Essential (primary) hypertension; E03.9 Hypothyroidism, unspecified; Y93.9 Activity, unspecified | CPT/HCPCS: 84443 ==

== ENCOUNTER → 2020-07-29 10:02 | Outpatient (BNVA) | payer SELFPAY | PROVIDERS: PCP Family Medicine; Referring Provider Nurse Practitioner Family; Visit Provider Orthopaedic Surgery | DX: M25.551 Pain in right hip (principal); M25.552 Pain in left hip | CPT/HCPCS: 73522 ==

== ENCOUNTER → 2020-11-30 10:28 | Outpatient (BNVA) | payer SELFPAY | PROVIDERS: PCP Family Medicine; Visit Provider Emergency Medicine | DX: E03.9 Hypothyroidism, unspecified (principal); I10 Essential (primary) hypertension; M70.61 Trochanteric bursitis, right hip; M70.62 Trochanteric bursitis, left hip; M54.5 Low back pain; M54.9 Dorsalgia, unspecified | CPT/HCPCS: 80053; 84443 ==

== ENCOUNTER → 2021-01-15 08:50 | Outpatient (BNVA) | payer SELFPAY | PROVIDERS: PCP Family Medicine; Visit Provider Family Medicine | DX: I10 Essential (primary) hypertension (principal); E03.9 Hypothyroidism, unspecified; Z13.220 Encounter for screening for lipoid disorders; Z13.6 Encounter for screening for cardiovascular disorders; M62.830 Muscle spasm of back | CPT/HCPCS: 80061; 84439; 84443; 84481 ==

== ENCOUNTER → 2021-12-14 10:21 | Outpatient (BNVA) | payer SELFPAY | PROVIDERS: PCP Family Medicine; Visit Provider Family Medicine | DX: I10 Essential (primary) hypertension (principal); Z13.220 Encounter for screening for lipoid disorders; Z13.6 Encounter for screening for cardiovascular disorders; E03.9 Hypothyroidism, unspecified; M54.31 Sciatica, right side; M62.830 Muscle spasm of back; Z13.1 Encounter for screening for diabetes mellitus | CPT/HCPCS: 80053; 80061; 84439; 84443; 84481 ==

== ENCOUNTER → 2023-01-05 09:07 | Outpatient (BNVA) | payer OTHER, SELFPAY | PROVIDERS: PCP Family Medicine; Visit Provider Thoracic Surgery (Cardiothoracic Vascular Surgery) | DX: N60.01 Solitary cyst of right breast (principal); N60.02 Solitary cyst of left breast; I96 Gangrene, not elsewhere classified | CPT/HCPCS: 87070 ==

== ENCOUNTER → 2023-03-15 09:25 | Outpatient (BNVA) | payer OTHER, SELFPAY | PROVIDERS: PCP Family Medicine; Visit Provider Family Medicine | DX: E03.9 Hypothyroidism, unspecified (principal); I10 Essential (primary) hypertension; M79.672 Pain in left foot; Z22.322 Carrier or suspected carrier of Methicillin resistant Staphylococcus aureus; A49.02 Methicillin resistant Staphylococcus aureus infection, unspecified site; N61.1 Abscess of the breast and nipple; M62.830 Muscle spasm of back; H53.9 Unspecified visual disturbance | CPT/HCPCS: 80053; 80061; 84439; 84443; 84481 ==

== ENCOUNTER → 2024-03-01 11:26 | Outpatient (BNVA) | payer SELFPAY | PROVIDERS: PCP Family Medicine; Visit Provider Nurse Practitioner | DX: J02.9 Acute pharyngitis, unspecified (principal) | CPT/HCPCS: 87071; 87426; 87880 ==

== ENCOUNTER → 2024-03-20 13:26 | Outpatient (BNVA) | payer SELFPAY | PROVIDERS: PCP Family Medicine; Visit Provider Family Medicine | DX: I10 Essential (primary) hypertension (principal); E03.9 Hypothyroidism, unspecified | CPT/HCPCS: 80053; 80061; 84439; 84443; 84481 ==

== ENCOUNTER → 2024-11-06 09:34 | Outpatient (BNVA) | payer SELFPAY | PROVIDERS: PCP Family Medicine; Visit Provider Family Medicine | DX: E03.9 Hypothyroidism, unspecified (principal); M54.31 Sciatica, right side; I10 Essential (primary) hypertension | CPT/HCPCS: 84439; 84443; 84481 ==